=== PATIENT | female | born 1945 | race Two or more races ===

== ENCOUNTER 2019-11-25 07:43 | Emergency (ER) | payer MEDICARE ==
[~2019-11-25] VITALS: Ht 160 cm; Wt 68.0 kg
[2019-11-25 08:01] VITALS: BP 120/51
== END 2019-11-25 09:01 | disposition home or self-care (01) ==
LOC: ER 07:43
DX: D17.1 Benign lipomatous neoplasm of skin and subcutaneous tissue of trunk (principal); M54.6 Pain in thoracic spine; I10 Essential (primary) hypertension; Z86.73 Personal history of transient ischemic attack (TIA), and cerebral infarction without residual deficits; Z95.1 Presence of aortocoronary bypass graft; Z88.1 Allergy status to other antibiotic agents

== ENCOUNTER 2019-12-04 08:31 | Emergency (ER) | payer MEDICARE ==
[~2019-12-04] VITALS: Ht 160 cm; Wt 65.8 kg
[2019-12-04 08:40] VITALS: BP 114/83
[2019-12-04] MEDS ORDERED: LIDOCAINE 1% HCL (LOCAL ANESTH.) INJ 20ML MDV IJ ONE (09:15)
== END 2019-12-04 09:33 | disposition home or self-care (01) ==
LOC: ER 08:31
DX: L02.212 Cutaneous abscess of back [any part, except buttock and flank] (principal); L72.0 Epidermal cyst; I10 Essential (primary) hypertension; Z88.1 Allergy status to other antibiotic agents; Z88.8 Allergy status to other drugs, medicaments and biological substances; Z86.73 Personal history of transient ischemic attack (TIA), and cerebral infarction without residual deficits; Z95.1 Presence of aortocoronary bypass graft
CPT/HCPCS: 10060; 99283; J2001

== ENCOUNTER 2019-12-07 08:05 | Emergency (ER) | payer MEDICARE ==
[~2019-12-07] VITALS: Ht 160 cm; Wt 63.5 kg
[2019-12-07 08:17] VITALS: BP 108/59
== END 2019-12-07 10:07 | disposition home or self-care (01) ==
LOC: ER 08:05
DX: Z48.01 Encounter for change or removal of surgical wound dressing (principal)

== ENCOUNTER 2020-09-20 12:21 | Emergency (ER) | payer MEDICARE ==
[~2020-09-20] VITALS: Ht 160 cm; Wt 65.8 kg
[2020-09-20 12:31] VITALS: BP 125/35
[2020-09-20] MEDS ORDERED: METHOCARBAMOL 500 MG TAB PO ONE (14:15)
[2020-09-20] MEDS ORDERED: ACETAMINOPHEN 500 MG TAB PO ONE (14:15)
== END 2020-09-20 14:40 | disposition home or self-care (01) ==
LOC: ER 12:21
DX: M54.31 Sciatica, right side (principal); I10 Essential (primary) hypertension; E78.5 Hyperlipidemia, unspecified; Z88.2 Allergy status to sulfonamides; Z88.1 Allergy status to other antibiotic agents; Z95.1 Presence of aortocoronary bypass graft
CPT/HCPCS: 72100

== ENCOUNTER 2020-12-17 10:53 | Inpatient (IN) | payer MEDICARE ==
[~2020-12-17] VITALS: Ht 160 cm; Wt 69.3 kg
[2020-12-17 14:08] LABS: Basophils # (auto) 0 10 ^3/uL (0-0.2); Basophils % (auto) 0.5 % (0.0-2.0); Eosinophils # (auto) 0.3 10 ^3/uL (0-0.8); Hematocrit 38.9 % (36.0-46.0); Hemoglobin 13.3 g/dL (12.2-16.2); Lymphocytes # (auto) 2.4 10 ^3/uL (0.4-5.4); Mean Corpuscular Hemoglobin 31.2 pg (28.0-32.0); Mean Corpuscular Hgb Conc. 34.1 g/dL (32.0-36.0); Mean Corpuscular Volume 91.4 fL (80.0-100.0); Monocytes # (auto) 0.4 10 ^3/uL (0-1.3); Monocytes % (auto) 6.3 % (0.0-12.0); Neutrophils # (auto) 3.6 10 ^3/uL (1.6-8.6); Neutrophils % (auto) 53.2 % (37.0-80.0); Nucleated Red Blood Cells % 0.1 %; Platelet Count (auto) 191 10^3/uL (140-450); Red Blood Cells 4.25 10^6/uL (4.0-5.20); Red Cell Distribution Width 14.1 % (11.8-14.3); White Blood Cell 6.8 10^3/uL (4.4-10.8)
[2020-12-17 14:30] LABS: INR 1.03 (0.9-1.15); Partial Thromboplastin Time 24.8 sec (23.0-31.2)
[2020-12-17 14:32] LABS: Albumin 3.6 g/dL (3.4-5.0); BUN/Creatinine Ratio 13.5; Calcium 8.9 mg/dL (8.5-10.1); Potassium 4.1 mmol/L (3.5-5.1)
[2020-12-17 14:35] LABS: Bilirubin, Total 0.7 mg/dL (0.2-1.0); Total Protein 6.7 g/dL (6.4-8.2)
[2020-12-17] MEDS ORDERED: ONDANSETRON HCL 4 MG/2 ML VIAL IV PRN (17:30)
[2020-12-17] MEDS ORDERED: MORPHINE SULF INJ 2 MG/ML SYRINGE 1ML IV PRN ×2 (17:30)
[2020-12-17] MEDS ORDERED: ACETAMINOPHEN 500 MG TAB PO PRN (17:30)
[2020-12-17] MEDS ORDERED: NITROGLYCERIN 0.4 MG SL TAB SL PRN (17:30)
[2020-12-17] MEDS ORDERED: hydrOXYzine 25 MG TAB or CAP PO PRN (18:15)
[2020-12-17] MEDS: HYDROcodone-ACET 5/325MG TAB PO PRN (18:43)
[2020-12-17] MEDS ORDERED: LORazepam 2MG/ML-1ML VIAL IV PRN (19:45)
[2020-12-17] MEDS: CARVEDILOL 12.5 MG TAB PO SCH (21:09)
[2020-12-17] MEDS: FLUTICASONE PROP NASAL SPR 0.05 % (50MCG) 16GM EACHNOSTRI SCH (21:09)
[2020-12-17] MEDS: levETIRAcetam 500 MG TAB PO SCH (21:10)
[2020-12-17] MEDS: ATORVASTATIN 20 MG TAB PO SCH (21:10)
[2020-12-17] MEDS: LOSARTAN POTASSIUM 50 MG TAB PO SCH (21:10)
[2020-12-18] MEDS: HYDROcodone-ACET 5/325MG TAB PO PRN ×3 (00:42→20:07)
[2020-12-18 04:35] VITALS: BP 94/56
[2020-12-18 05:00] VITALS: BP 94/56
[2020-12-18] MEDS ORDERED: FURO20TA3 PO (06:49)
[2020-12-18] MEDS ORDERED: CARV12.544 PO (06:49)
[2020-12-18] MEDS ORDERED: OXYB10TA14 PO (06:49)
[2020-12-18] MEDS ORDERED: LEVO25TA6 PO (06:49)
[2020-12-18] MEDS ORDERED: LOSA-69 PO (06:49)
[2020-12-18] MEDS ORDERED: KEP500T PO (06:49)
[2020-12-18] MEDS ORDERED: HYDR-3682 PO (06:49)
[2020-12-18] MEDS ORDERED: SPIR25TA8 PO (06:49)
[2020-12-18] MEDS ORDERED: ATOR40TA52 PO (06:49)
[2020-12-18] MEDS ORDERED: PRAS5TAB PO (06:49)
[2020-12-18] MEDS ORDERED: PROB1CAP51 PO (07:00)
[2020-12-18] MEDS: LEVOTHYROXINE SODIUM 25 MCG TAB PO SCH (07:09)
[2020-12-18 09:00] VITALS: BP 96/56
[2020-12-18] MEDS: FUROSEMIDE 20 MG TAB PO SCH (10:00)
[2020-12-18] MEDS: LOSARTAN POTASSIUM 50 MG TAB PO SCH (10:00)
[2020-12-18] MEDS: CARVEDILOL 12.5 MG TAB PO SCH ×2 (10:00→22:23)
[2020-12-18] MEDS: FLUTICASONE PROP NASAL SPR 0.05 % (50MCG) 16GM EACHNOSTRI SCH ×2 (10:35→22:00)
[2020-12-18] MEDS: FLORASTOR (S. BOULARDII) 250 MG CAP PO SCH (10:36)
[2020-12-18] MEDS: levETIRAcetam 500 MG TAB PO SCH ×2 (10:36→22:23)
[2020-12-18] MEDS: PRASUGREL HCL 10 MG TAB PO SCH (10:36)
[2020-12-18] MEDS: OXYBUTYNIN CHL 5 MG TAB PO SCH (10:36)
[2020-12-18] MEDS: FAMOTIDINE 20 MG TAB PO SCH (10:37)
[2020-12-18 13:00] VITALS: BP 117/70
[2020-12-18 16:55] LABS: Urine Bacteria FEW /hpf (None Seen); Urine Blood Negative /uL (Negative); Urine Specific Gravity 1.004 (1.001-1.035); Urine WBC 1 /hpf (0 - 5)
[2020-12-18 17:00] VITALS: BP 92/46
[2020-12-18 22:00] VITALS: BP 123/67
[2020-12-18] MEDS: ATORVASTATIN 20 MG TAB PO SCH (22:23)
[2020-12-19 05:00] VITALS: BP 95/55
[2020-12-19] MEDS: LEVOTHYROXINE SODIUM 25 MCG TAB PO SCH (06:58)
[2020-12-19 09:00] VITALS: BP 111/38
[2020-12-19] MEDS: CARVEDILOL 12.5 MG TAB PO SCH (09:51)
[2020-12-19] MEDS: LOSARTAN POTASSIUM 50 MG TAB PO SCH (09:51)
[2020-12-19] MEDS: FAMOTIDINE 20 MG TAB PO SCH (09:52)
[2020-12-19] MEDS: levETIRAcetam 500 MG TAB PO SCH (09:52)
[2020-12-19] MEDS: PRASUGREL HCL 10 MG TAB PO SCH (09:52)
[2020-12-19] MEDS: OXYBUTYNIN CHL 5 MG TAB PO SCH (09:52)
[2020-12-19] MEDS: FLORASTOR (S. BOULARDII) 250 MG CAP PO SCH (09:52)
[2020-12-19] MEDS: FUROSEMIDE 20 MG TAB PO SCH (09:52)
[2020-12-19] MEDS: FLUTICASONE PROP NASAL SPR 0.05 % (50MCG) 16GM EACHNOSTRI SCH (10:00)
[2020-12-19] MEDS ORDERED: SPIRONOLACTONE 25 MG TAB PO SCH (10:00)
[2020-12-19] MEDS: HYDROcodone-ACET 5/325MG TAB PO PRN (12:18)
[2020-12-19 13:00] VITALS: BP 119/77
[2020-12-19 19:25] VITALS: BP 113/75
== END 2020-12-19 20:33 | disposition home or self-care (01) | DRG 103 ==
LOC: ER 10:53 → TELE 17:20 → TELE-EAST 12-18 03:50
PROVIDERS: ADMIT Nurse Practitioner Acute Care; ATTEND Internal Medicine
DX: F07.81 Postconcussional syndrome (principal); I50.22 Chronic systolic (congestive) heart failure; G40.909 Epilepsy, unspecified, not intractable, without status epilepticus; I48.91 Unspecified atrial fibrillation; I11.0 Hypertensive heart disease with heart failure; I25.10 Atherosclerotic heart disease of native coronary artery without angina pectoris; M47.812 Spondylosis without myelopathy or radiculopathy, cervical region; R55 Syncope and collapse; W01.0XXA Fall on same level from slipping, tripping and stumbling without subsequent striking against object, initial encounter; Z20.822 Contact with and (suspected) exposure to COVID-19; M50.30 Other cervical disc degeneration, unspecified cervical region; F17.200 Nicotine dependence, unspecified, uncomplicated; M48.02 Spinal stenosis, cervical region; Z79.899 Other long term (current) drug therapy; Z82.49 Family history of ischemic heart disease and other diseases of the circulatory system; Z86.73 Personal history of transient ischemic attack (TIA), and cerebral infarction without residual deficits; Z83.3 Family history of diabetes mellitus; Z90.710 Acquired absence of both cervix and uterus; Z95.5 Presence of coronary angioplasty implant and graft; Z95.810 Presence of automatic (implantable) cardiac defibrillator; Y93.89 Activity, other specified; Y92.89 Other specified places as the place of occurrence of the external cause; Y99.8 Other external cause status; Z88.2 Allergy status to sulfonamides; Z88.1 Allergy status to other antibiotic agents; Z88.8 Allergy status to other drugs, medicaments and biological substances; G44.311 Acute post-traumatic headache, intractable
CPT/HCPCS: 36415; 70450; 71045; 72125; 80053; 81001; 83735; 84443; 84484; 85025; 85610; 85730; 87426; 97163; G0378

== ENCOUNTER 2021-03-26 11:16 | Inpatient (IN) | payer MEDICARE ==
[~2021-03-26] VITALS: Ht 157.5 cm; Wt 70.0 kg
[~2021-03-26 11:16] MED LIST: ATOR40TA52 PO; CARV12.544 PO; FURO20TA3 PO; HYDR-3682 PO; KEP500T PO; LEVO25TA6 PO; LOSA-69 PO; OXYB10TA14 PO; PRAS5TAB PO; PROB1CAP51 PO; SPIR25TA8 PO
[2021-03-26 12:24] LABS: Urine Bacteria FEW /hpf (None Seen); Urine Blood Negative /uL (Negative); Urine Hyaline Cast FEW /lpf (0 - 2); Urine Mucus FEW (None Seen); Urine Specific Gravity 1.025 (1.001-1.035); Urine WBC 2 /hpf (0 - 5)
[2021-03-26 12:43] LABS: Basophils # (auto) 0.1 10 ^3/uL (0-0.2); Basophils % (auto) 1.4 % (0.0-2.0); Eosinophils # (auto) 0.3 10 ^3/uL (0-0.8); Eosinophils % (auto) 3.8 % (0.0-7.0); Hematocrit 39.4 % (36.0-46.0); Hemoglobin 13.3 g/dL (12.2-16.2); Lymphocytes # (auto) 2.4 10 ^3/uL (0.4-5.4); Lymphocytes % (auto) 30.4 % (10.0-50.0); Mean Corpuscular Hemoglobin 30.5 pg (28.0-32.0); Mean Corpuscular Hgb Conc. 33.8 g/dL (32.0-36.0); Mean Corpuscular Volume 90.3 fL (80.0-100.0); Monocytes # (auto) 0.4 10 ^3/uL (0-1.3); Monocytes % (auto) 5.5 % (0.0-12.0); Neutrophils # (auto) 4.7 10 ^3/uL (1.6-8.6); Neutrophils % (auto) 58.9 % (37.0-80.0); Nucleated Red Blood Cells % 0.1 %; Platelet Count (auto) 231 10^3/uL (140-450); Red Blood Cells 4.37 10^6/uL (4.0-5.20); Red Cell Distribution Width 13.8 % (11.8-14.3)
[2021-03-26 13:06] LABS: Potassium 4.4 mmol/L (3.5-5.1)
[2021-03-26] MEDS ORDERED: LEVE500T3 PO (13:22)
[2021-03-26] MEDS ORDERED: FLUT50SP NAS (13:22)
[2021-03-26] MEDS ORDERED: FUR20T PO (13:22)
[2021-03-26] MEDS ORDERED: LEV25T PO (13:22)
[2021-03-26 13:36] LABS: Albumin 3.7 g/dL (3.4-5.0); BUN/Creatinine Ratio 15.5; Bilirubin, Total 0.7 mg/dL (0.2-1.0); Calcium 8.9 mg/dL (8.5-10.1); Total Protein 6.8 g/dL (6.4-8.2)
[2021-03-26] MEDS ORDERED: ACETAMINOPHEN 500 MG TAB PO PRN (14:15)
[2021-03-26] MEDS ORDERED: CARISOPRODOL 350 MG TAB PO PRN (14:15)
[2021-03-26] MEDS ORDERED: NITROGLYCERIN 0.4 MG SL TAB SL PRN (14:15)
[2021-03-26] MEDS ORDERED: ONDANSETRON HCL 4 MG/2 ML VIAL IV PRN (14:15)
[2021-03-26] MEDS ORDERED: MORPHINE SULF INJ 2 MG/ML SYRINGE 1ML IV PRN (14:15)
[2021-03-26] MEDS: HYDROcodone-ACET 5/325MG TAB PO PRN ×2 (15:09→21:44)
[2021-03-26] MEDS: CARVEDILOL 12.5 MG TAB PO SCH (18:21)
[2021-03-26 20:10] VITALS: BP 109/50
[2021-03-26] MEDS: LOSARTAN POTASSIUM 50 MG TAB PO SCH (21:28)
[2021-03-26] MEDS: levETIRAcetam 500 MG TAB PO SCH (21:29)
[2021-03-26] MEDS: ATORVASTATIN 20 MG TAB PO SCH (21:30)
[2021-03-26 22:00] VITALS: BP 109/50
[2021-03-27] MEDS: MORPHINE SULF INJ 2 MG/ML SYRINGE 1ML IV PRN (00:08)
[2021-03-27 04:33] VITALS: BP 94/45
[2021-03-27] MEDS: HYDROcodone-ACET 5/325MG TAB PO PRN ×3 (05:13→20:51)
[2021-03-27] MEDS: LEVOTHYROXINE SODIUM 25 MCG TAB PO SCH (06:46)
[2021-03-27] MEDS: CARVEDILOL 12.5 MG TAB PO SCH (08:00)
[2021-03-27 09:18] VITALS: BP 106/60
[2021-03-27] MEDS: levETIRAcetam 500 MG TAB PO SCH ×2 (09:28→21:14)
[2021-03-27] MEDS: PRASUGREL HCL 10 MG TAB PO SCH (09:29)
[2021-03-27] MEDS: FLUTICASONE PROP NASAL SPR 0.05 % (50MCG) 16GM SCH (09:59)
[2021-03-27] MEDS ORDERED: SPIRONOLACTONE 25 MG TAB PO SCH (10:00)
[2021-03-27] MEDS ORDERED: FUROSEMIDE 20 MG TAB PO SCH (10:00)
[2021-03-27 12:51] VITALS: BP 103/60
[2021-03-27 15:15] LABS: Free T3 2.93 pg/mL (2.3-4.2); Free T4 (Free Thyroxine) 1.01 ng/dL (0.89-1.76)
[2021-03-27 15:28] LABS: INR 1.09 (0.9-1.15); Partial Thromboplastin Time 21.9 sec (23.0-31.2)
[2021-03-27] MEDS ORDERED: GABAPENTIN 300 MG CAP PO ONE (16:00)
[2021-03-27 16:48] VITALS: BP 108/64
[2021-03-27] MEDS: GABAPENTIN 300 MG CAP PO SCH (21:14)
[2021-03-27] MEDS: ATORVASTATIN 20 MG TAB PO SCH (21:14)
[2021-03-27 22:00] VITALS: BP 104/57
[2021-03-28 05:00] VITALS: BP 102/43
[2021-03-28] MEDS: GABAPENTIN 300 MG CAP PO SCH ×2 (06:05→14:30)
[2021-03-28] MEDS: LEVOTHYROXINE SODIUM 25 MCG TAB PO SCH (06:05)
[2021-03-28] MEDS: MORPHINE SULF INJ 2 MG/ML SYRINGE 1ML IV PRN (08:15)
[2021-03-28 09:00] VITALS: BP 116/55
[2021-03-28] MEDS: PRASUGREL HCL 10 MG TAB PO SCH (09:57)
[2021-03-28] MEDS: FLUTICASONE PROP NASAL SPR 0.05 % (50MCG) 16GM SCH (09:57)
[2021-03-28] MEDS: levETIRAcetam 500 MG TAB PO SCH (09:58)
[2021-03-28 13:00] VITALS: BP 116/66
[2021-03-28] MEDS: HYDROcodone-ACET 5/325MG TAB PO PRN (14:00)
[2021-03-28] MEDS ORDERED: GABA300C10 PO (14:24)
[2021-03-28 14:59] VITALS: BP 109/60
== END 2021-03-28 16:34 | disposition home or self-care (01) | DRG 313 ==
LOC: ER 11:16 → TELE 14:10 → TELE-CENTR 20:10
PROVIDERS: ADMIT Nurse Practitioner Acute Care; ATTEND Internal Medicine
DX: R07.89 Other chest pain (principal); I31.3 Pericardial effusion (noninflammatory); I50.22 Chronic systolic (congestive) heart failure; I25.5 Ischemic cardiomyopathy; E03.9 Hypothyroidism, unspecified; G40.909 Epilepsy, unspecified, not intractable, without status epilepticus; I25.10 Atherosclerotic heart disease of native coronary artery without angina pectoris; E78.5 Hyperlipidemia, unspecified; I48.0 Paroxysmal atrial fibrillation; I11.0 Hypertensive heart disease with heart failure; Z20.822 Contact with and (suspected) exposure to COVID-19; Z82.49 Family history of ischemic heart disease and other diseases of the circulatory system; Z86.73 Personal history of transient ischemic attack (TIA), and cerebral infarction without residual deficits; Z95.810 Presence of automatic (implantable) cardiac defibrillator; Z98.61 Coronary angioplasty status; Z90.49 Acquired absence of other specified parts of digestive tract
CPT/HCPCS: 36415; 71045; 74176; 80053; 81001; 83735; 83880; 84439; 84443; 84481; 84484; 85025; 85379; 85610; 85652; 85730; 87426; 93005; 93306; G0378

== ENCOUNTER 2022-04-10 09:29 | Emergency (ER) | payer MEDICARE ==
[~2022-04-10] VITALS: Ht 160 cm; Wt 70.8 kg
[~2022-04-10 09:29] MED LIST changes: -CARV12.544 PO; +FLUT50SP NAS; -FURO20TA3 PO; +GABA300C10 PO; +LEV25T PO; +LEVE500T3 PO; -LOSA-69 PO; -SPIR25TA8 PO
[2022-04-10 10:46] LABS: Basophils # (auto) 0 10 ^3/uL (0-0.2); Basophils % (auto) 0.8 % (0.0-2.0); Eosinophils # (auto) 0 10 ^3/uL (0-0.8); Eosinophils % (auto) 0.3 % (0.0-7.0); Hematocrit 38.3 % (36.0-46.0); Hemoglobin 13.3 g/dL (12.2-16.2); Lymphocytes # (auto) 1.4 10 ^3/uL (0.4-5.4); Lymphocytes % (auto) 24.3 % (10.0-50.0); Mean Corpuscular Hemoglobin 31.5 pg (28.0-32.0); Mean Corpuscular Hgb Conc. 34.6 g/dL (32.0-36.0); Monocytes # (auto) 0.6 10 ^3/uL (0-1.3); Monocytes % (auto) 10.2 % (0.0-12.0); Neutrophils # (auto) 3.6 10 ^3/uL (1.6-8.6); Neutrophils % (auto) 64.4 % (37.0-80.0); Nucleated Red Blood Cells % 0.1 %; Red Blood Cells 4.21 10^6/uL (4.0-5.20); Red Cell Distribution Width 14.1 % (11.8-14.3); White Blood Cell 5.6 10^3/uL (4.4-10.8)
[2022-04-10 11:02] LABS: Albumin 3.7 g/dL (3.4-5.0); Calcium 8.7 mg/dL (8.5-10.1); Magnesium 2.5 mg/dL (1.6-2.6); Potassium 3.5 mmol/L (3.5-5.1)
[2022-04-10 11:05] LABS: BUN/Creatinine Ratio 12.3; Bilirubin, Total 0.7 mg/dL (0.2-1.0)
[2022-04-10] MEDS ORDERED: IBUPROFEN 600 MG TAB PO ONE ×2 (12:49→13:00)
[2022-04-10] MEDS ORDERED: METH500T22 PO (13:08)
[2022-04-10] MEDS ORDERED: DEX4T PO (13:08)
[2022-04-10 13:10] LABS: Urine Bacteria FEW /hpf (None Seen); Urine Blood Negative /uL (Negative); Urine Specific Gravity 1.024 (1.001-1.035); Urine WBC 2 /hpf (0 - 5)
[2022-04-10] MEDS ORDERED: DexAMETHasone SOD PHOS 10MG/1ML VIAL INJ IV ONE (13:15)
[2022-04-10 13:28] VITALS: BP 101/53
[2022-04-10] MEDS ORDERED: DexAMETHasone SOD PHOS 10MG/1ML VIAL INJ IM ONE (13:30)
== END 2022-04-10 13:35 | disposition home or self-care (01) ==
LOC: ER 09:29
DX: M54.12 Radiculopathy, cervical region (principal); M47.812 Spondylosis without myelopathy or radiculopathy, cervical region; R42 Dizziness and giddiness; E11.21 Type 2 diabetes mellitus with diabetic nephropathy; I11.0 Hypertensive heart disease with heart failure; I50.9 Heart failure, unspecified; E78.5 Hyperlipidemia, unspecified; Z98.61 Coronary angioplasty status; Z86.73 Personal history of transient ischemic attack (TIA), and cerebral infarction without residual deficits
CPT/HCPCS: 36415; 71045; 72125; 80053; 81001; 83735; 84443; 84484; 85025; 93005; 96372; 99285; J1100

== ENCOUNTER 2022-09-06 10:20 | Emergency (ER) | payer MEDICARE ==
[~2022-09-06] VITALS: Ht 160 cm; Wt 66.0 kg
[~2022-09-06 10:20] MED LIST changes: +DEX4T PO; +METH500T22 PO
[2022-09-06 10:59] VITALS: BP 114/60
[2022-09-06] MEDS ORDERED: methylPREDNISolone SOD SUCC 125 MG/2 ML VL IM ONE (11:00)
[2022-09-06] MEDS ORDERED: ACET-1080 PO (12:24)
[2022-09-06] MEDS ORDERED: PRED20TA2 PO (12:24)
== END 2022-09-06 12:27 | disposition home or self-care (01) ==
LOC: ER 10:20
DX: M51.37 Other intervertebral disc degeneration, lumbosacral region (principal); M54.16 Radiculopathy, lumbar region; I11.0 Hypertensive heart disease with heart failure; I50.9 Heart failure, unspecified; E78.5 Hyperlipidemia, unspecified; E03.9 Hypothyroidism, unspecified; Z86.73 Personal history of transient ischemic attack (TIA), and cerebral infarction without residual deficits; Z95.1 Presence of aortocoronary bypass graft; Z95.0 Presence of cardiac pacemaker; Z79.899 Other long term (current) drug therapy; Z88.1 Allergy status to other antibiotic agents; Z88.2 Allergy status to sulfonamides; Z88.8 Allergy status to other drugs, medicaments and biological substances
CPT/HCPCS: 93971; 96372; 99284; J2930

== ENCOUNTER 2022-12-14 03:08 | Emergency (ER) | payer MEDICARE ==
[~2022-12-14] VITALS: Ht 160 cm; Wt 65.1 kg
[~2022-12-14 03:08] MED LIST changes: +ACET-1080 PO; +PRED20TA2 PO
[2022-12-14 06:49] VITALS: BP 123/69
[2022-12-14] MEDS ORDERED: HYDROcodone-ACET 5/325MG TAB PO ONE (07:00)
[2022-12-14] MEDS ORDERED: methylPREDNISolone SOD SUCC 125 MG/2 ML VL IM ONE (07:00)
[2022-12-14] MEDS ORDERED: PRED20TA2 PO ×2 (07:25→07:39)
[2022-12-14] MEDS ORDERED: ACET-1080 PO ×3 (07:25→07:39)
== END 2022-12-14 07:33 | disposition home or self-care (01) ==
LOC: ER 03:08
DX: M54.50 Low back pain, unspecified (principal); M54.16 Radiculopathy, lumbar region; E78.5 Hyperlipidemia, unspecified; I11.0 Hypertensive heart disease with heart failure; I50.9 Heart failure, unspecified; Z86.73 Personal history of transient ischemic attack (TIA), and cerebral infarction without residual deficits; Z98.890 Other specified postprocedural states; Z79.899 Other long term (current) drug therapy; Z88.2 Allergy status to sulfonamides; Z88.8 Allergy status to other drugs, medicaments and biological substances
CPT/HCPCS: 96372; 99283; J2930

== ENCOUNTER 2024-06-25 10:52 | Emergency (ER) | payer MEDICARE ==
[~2024-06-25] VITALS: Ht 160 cm; Wt 70.5 kg
[~2024-06-25 10:52] MED LIST changes: +GABA-1250 PO; -GABA300C10 PO; +METH-1181 PO; -METH500T22 PO
[2024-06-25] MEDS: HYDROcodone-ACET 5/325MG TAB PO ONE (12:22)
[2024-06-25 12:26] VITALS: BP 137/75; PULSE 66; RESP 18; TEMP 98.1; O2SAT 95
[2024-06-25] MEDS: methylPREDNISolone SOD SUCC 125 MG/2 ML VL IM ONE (12:51)
[2024-06-25] MEDS ORDERED: METH-1182 PO (13:05)
== END 2024-06-25 13:07 | disposition home or self-care (01) ==
LOC: ER 10:52
DX: M51.16 Intervertebral disc disorders with radiculopathy, lumbar region (principal); I82.402 Acute embolism and thrombosis of unspecified deep veins of left lower extremity; I11.0 Hypertensive heart disease with heart failure; I50.9 Heart failure, unspecified; E78.5 Hyperlipidemia, unspecified; Z88.2 Allergy status to sulfonamides; Z88.1 Allergy status to other antibiotic agents; Z86.73 Personal history of transient ischemic attack (TIA), and cerebral infarction without residual deficits
CPT/HCPCS: 93971; 96372; 99285; J2919

== ENCOUNTER 2025-02-24 06:20 | Emergency (ER) | payer MEDICARE ==
[~2025-02-24] VITALS: Ht 160 cm; Wt 68.9 kg
[~2025-02-24 06:20] MED LIST changes: +METH-1182 PO
[2025-02-24 06:30] VITALS: BP 145/82; PULSE 99; RESP 13; TEMP 99.8; O2SAT 95
--- NOTE | 2025-02-24 07:24 | ED.PDOC ---
History of Present Illness HPI Comments 80 y/o F, with PMHx of CHF, CVA, HLD, HTN, Seizures, and TIA presents to the ED for CC of diarrhea. Patient states, that she has been experiencing symptoms of dizziness with associated blurred vision and diarrhea x2-3days. Patient relays, that she was previously hospitalized for similar symptoms [id number] ago. Patient comments, on having [id number] of loose diarrhea daily since, start of symptoms. No other associated symptoms, modifiers, recent injuries or sick contacts present at this time. Chief Complaint: Diarrhea Time Seen by MD: 07:13 Primary Care Provider: ANDI Reviewed Notes: Nurses Notes, Medications, Allergies Allergies: Coded Allergies: Cefaclor (Verified Allergy, Unknown, 11/25/19) Sulfate (Verified Allergy, Unknown, 11/25/19) Tetracycline (Verified Allergy, Unknown, 11/25/19) Home Meds Active Scripts Methocarbamol (Methocarbamol) 750 Mg Tab, 750 MG PO BID, #20 TAB Prov:PHUC PALACIOS 06/25/24 Acetaminophen (Tylenol 8 Hour Arthritis) 650 Mg Tab, 650 MG PO TID, #30 TAB Prov:PHUC PALACIOS 12/14/22 Prednisone (Prednisone) 20 Mg Tab, 40 MG PO DAILY, #20 MG Prov:PHUC PALACIOS 12/14/22 Prednisone (Prednisone) 20 Mg Tab, 40 MG PO DAILY, #20 MG Prov:PHUC PALACIOS 12/14/22 Acetaminophen (Tylenol 8 Hour Arthritis) 650 Mg Tab, 650 MG PO TID, #30 TAB Prov:PHUC PALACIOS 09/06/22 Methocarbamol (Methocarbamol) 500 Mg Tab, 500 MG PO TID for 5 Days, #15 TAB Prov:WAN SAUCEDA MD 04/10/22 Dexamethasone (Decadron) 4 Mg Tb, 1 TAB PO BID for 5 Days, #10 TAB Prov:WAN SAUCEDA MD 04/10/22 Gabapentin (Gabapentin) 300 Mg Cap, 300 MG PO TID for 10 Days, #30 CAP Prov:CRUZ RICH MD 03/28/21 Reported Medications Fluticasone Propionate (Nasal) (Fluticasone Propionate) 50 Mcg/Act Spr, SPRAY AGUSTO 03/26/21 Levothyroxine Sodium (Levothyroxine Sodium) 25 Mcg Tab, 1 TAB PO DAILYPRN 03/26/21 Levetiracetam (Levetiracetam) 500 Mg Tab, 1 TAB PO BID 03/26/21 Probiotic Product (Align Extra Strength) 1 Cap Cap, 1 CAP PO DAILY, CAP 12/18/20 Prasugrel HCl (Prasugrel) 5 Mg Tab, 5 MG PO DAILY, TAB 12/18/20 Oxybutynin Chloride (Ditropan Xl) 10 Mg Tab, 10 MG PO DAILY, TAB 12/18/20 Levothyroxine Sodium (Levothyroxine Sodium) 25 Mcg Tab, 25 MCG PO QAM, MCG 12/18/20 Levetiracetam (KEPPRA TABLET) 500 Mg Tb, 500 MG PO BID, TAB 12/18/20 Hydroxyzine Hcl (Hydroxyzine Hcl) 25 Mg Tab, 25 MG PO PRN for 30 Days, MG 12/18/20 Atorvastatin Calcium (ATORVASTATIN CALCIUM) 40 Mg Tab, 1 TAB PO DAILY, #30 TAB 5 Refills 12/18/20 Information Source: Patient Mode of Arrival: Ambulatory Severity: Moderate Timing: Days Duration: Since onset Prehospital treatment: None Past Medical History PAST MEDICAL HISTORY: CHF, CVA, High Lipids, HTN, Seizures, Thyroid, TIA Surgical History: CABG, Pacemaker [employer]INE[employer] History: Denies all [employer]ER Hx Family History Family History: Reviewed,noncontributory to illness, Family hx of HTN Social History Smoker: Non-Smoker Alcohol: Rarely Drugs: Denies Drug Use Lives In: Home Constitutional: denies: chills, diaphoresis, fatigue, fever, malaise, sweats, weakness, others EENTM: reports: blurred vision; denies: double vision, ear bleeding, ear discharge, ear drainage, ear pain, ear ringing, eye pain, eye redness, hearing loss, mouth pain, mouth swelling, nasal discharge, nose bleeding, nose congestio n, nose pain, photophobia, tearing, throat pain, throat swelling, voice changes, others Respiratory: denies: cough, hemoptysis, orthopnea, SOB at rest, shortness of breath, SOB with excertion, stridor, wheezing, others Cardiovascular: denies: chest pain, dizzy spells, diaphoresis, Dyspnea on exertion, edema, irregular heart beat, left arm pain, lightheadedness, palpitations, PND, syncope, others Gastrointestinal: reports: diarrhea; denies: abdomen distended, abdominal pain, blood streaked bowels, constipated, dysphagia, difficulty swallowing, angelica temesis, melena, nausea, poor appetite, poor fluid intake, rectal bleeding, rectal pain, vomiting, others Genitourinary: denies: abnormal vagina bleeding, burning, dyspareunia, dysuria, flank pain, frequency, hematuria, incontinence, pain, , vagina discharge, urgency, others Neurological: reports: dizziness; denies: fainting, headache, left sided numbness, left sided weakness, numbness, paresthesia, pre-existing deficit, right sided numbness, right sided weakness, seizure, speech problems, tingling, tremors, weakness, others Musculoskeletal: denies: back pain, gout, joint pain, joint swelling, muscle pain, muscle stiffness, neck pain, others Integumetry: denies: bruises, change in color, change in hair/nails, dryness, laceration, lesions, lumps, rash, wounds, others Allergic/Immunocompromised: denies: Difficulty Healing, Frequent Infections, Hives, Itching, others Hematologic/Lymphatic: denies: anemia, blood clots, easy bleeding, easy bruising, swollen glands, others Endocrine: denies: excessive hunger, excessive sweating, excessive thirst, excessive urination, flushing, intolerance to cold, intolerance to heat, unexplained weight gain, unexplained weight loss, others Psychiatric: denies: anxiety, bipolar disorder, depression, hopeless, panic disorder, schizophrenia, sleepless, suicidal, others All Other Systems: Reviewed and Negative Physical Exam General Appearance: No Apparent Distress, Normal HEENT: Normal ENT Inspection, Pharynx Normal Neck: Full Range of Motion, Non-Tender, Normal, Normal Inspection Respiratory: Chest Non-Tender, Lungs Clear, No Accessory Muscle Use, No Respiratory Distress, Normal Breath Sounds Cardiovascular: No Edema, No Murmur, No Gallop, Normal Peripheral Pulses, Regular Rate/Rhythm Breast Exam: Deferred Gastrointestinal: No Organomegaly, Non Tender, No Pulsatile Mass, Normal Bowel Sounds, Soft, Other (CHRONIC SYMPTOMS) Genitalia: Deferred Pelvic: Deferred Rectal: Deferred Extremities: No calf tenderness, Normal capillary refill, Normal inspection, Normal range of motion, Non-tender, No pedal edema Musculoskeletal : Apperance: Normal Neurologic: Alert, Normal Affect, Normal Mood, No Sensory Deficits Cerebellar Function: Normal Reflexes: Normal Skin: Dry, Normal Color, Warm Lymphatic: No Adenopathy Was a procedure done? Was a procedure done?: No Differential Dx Considerations may include: GASTRITIS, FOOD POISING, DEHYDRATION, HYPOGLYCEMIA, HYPOTENSION X-Ray, Labs, Meds, VS Vital Signs Date Time Temp Pulse Resp B/P (MAP) Pulse Ox O2 Delivery O2 Flow Rate FiO2 02/24/25 06:30 99.8 99 13 145/82 (103) 95 99.8 Lab Test 02/24/25 07:31 02/24/25 06:38 Range/Units White Blood Count 8.4 4.4-10.8 10^3/uL Red Blood Count 4.71 4.0-5.20 10^6/uL Hemoglobin 14.5 12.2-16.2 g/dL Hematocrit 43.3 36.0-46.0 % Mean Corpuscular Volume 91.9 80.0-100.0 fL Mean Corpuscular Hemoglobin 30.8 28.0-32.0 pg Mean Corpuscular Hemoglobin Concent 33.6 32.0-36.0 g/dL Red Cell Distribution Width 14.5 H 11.8-14.3 % Platelet Count 223 140-450 10^3/uL Mean Platelet Volume 8.3 6.9-10.8 fL Neutrophils (%) (Auto) 80.4 H 37.0-80.0 % Lymphocytes (%) (Auto) 9.7 L 10.0-50.0 % Monocytes (%) (Auto) 6.8 0.0-12.0 % Eosinophils (%) (Auto) 2.6 0.0-7.0 % Basophils (%) (Auto) 0.5 0.0-2.0 % Neutrophils # (Auto) 6.7 1.6-8.6 10 ^3/uL Lymphocytes # (Auto) 0.8 0.4-5.4 10 ^3/uL Monocytes # (Auto) 0.6 0-1.3 10 ^3/uL Eosinophils # (Auto) 0.2 0-0.8 10 ^3/uL Basophils # (Auto) 0 0-0.2 10 ^3/uL Nucleated Red Blood Cells 0.1 % Prothrombin Time 10.9 9.3-11.8 sec Prothrombin Time INR 1.03 0.9-1.15 Activated Partial Thromboplast Time 28.1 24.5-34.5 SEC D-Dimer, Quantitative < 0.19 0.0-0.49 mg/L FEU Sodium Level 140 136-145 mmol/L Potassium Level 4.4 3.5-5.1 mmol/L Chloride Level 107 98-107 mmol/L Carbon Dioxide Level 25 20-31 mmol/L Anion Gap 8 5-15 Blood Urea Nitrogen 10 9-23 mg/dL Creatinine 1.03 H 0.550-1.02 mg/dL Glomerular Filtration Rate Calc 56 >90 mL/min BUN/Creatinine Ratio 9.7 L 10.0-20.0 Serum Glucose 125 H 74-106 mg/dL Calcium Level 9.8 8.7-10.4 mg/dL Magnesium Level 1.9 1.6-2.6 mg/dL Total Bilirubin 0.6 0.2-1.0 mg/dL Aspartate Amino Transferase (AST) 26 13-40 U/L Alanine Aminotransferase (ALT) 31 7-40 U/L Alkaline Phosphatase 80 46-116 U/L Troponin I High Sensitivity 5 </=34 ng/L B-Type Natriuretic Peptide 405.68 0-100 pg/mL Total Protein 7.1 5.7-8.2 g/dL Albumin 4.7 3.2-4.8 g/dL POC Glucose 143 H 70-106 mg/dl [place] [id number] Ph: [phone] DIAGNOSTIC IMAGING Diagnostic Imaging Report : [id number] Signed PATIENT: ARNULFO HINES ACCT: [id number] UNIT: [id number] : 1945 LOC: ER ROOM / BED: / AGE / SEX: 80 / F ADM STATUS: REG ER SERVICE [id number] ORDERING PHYSICIAN: JAIME ANNA MD PROCEDURE(s): CXRP - CHEST PORTABLE REASON: shortness of breath ORDER NUMBER(s): [id number], ACCESSION NUMBER(s): [id number] EXAM: XY CHEST PORTABLE Indication: shortness of breath Technique: Single frontal view of the chest was obtained Comparison: CHEST XRAY 1 VIEW on DOS: 04/10/22, CXR1 on DOS: 04/10/22, CHEST PORTABLE on DOS: 03/26/21 FINDINGS: Lines and Tubes: Cardiac pacemaker projects over left chest wall. Lungs: No focal consolidation. Pleura: No effusion. No pneumothorax. Cardiomediastinal contours: Unremarkable Bones: No acute osseous abnormality. IMPRESSION: No acute cardiopulmonary disease. ATED BY: SAURABH BROWN MD DICTATED DATE/TIME: 02/24/25819 SIGNED BY: SAURABH BROWN MD SIGNED DATE/TIME: 02/24/25819 CC: X-Ray, Labs, Meds, VS Comment This 80-year-old female presents to the emergency room secondary to blacking out" spells. States she will ambulate and see black. She was episodes where she becomes weak. Workup here has benign. However, secondary to multiple risk factors including pacemaker placement, met her for further workup management for concern for syncope. Time of 1ST Reevaluation: 07:43 Reevaluation 1ST: Unchanged Patient Education/Counseling: Diagnosis, Treatment Family Education/Counseling: Diagnosis, Treatment Departure 1 Departure Time of Disposition: 09:52 Impression: Primary Impression: Dizziness Additional Impressions: Generalized weakness Syncope Disposition: ADMITTED INPATIENT Admit to: [facility] Condition: Guarded Critical Care Note Critical Care Time?: No Stability Stability form required: No Heart Score Heart Score: Heart Score Response (Comments) Value History N/A 0 EKG N/A 0 Age N/A 0 Risk Factors N/A 0 Troponin N/A 0 Total 0 I personally scribed for JAIME ANNA MD ([email or web address]) on 02/24/25 at 07:24. Electronically submitted by Shilpa Keating ([email or web address]). I personally scribed for JAIME ANNA MD ([email or web address]) on 02/24/25 at 08:49. Electronically submitted by Shilpa Keating ([email or web address]). JIAME ANNA MD Feb 24, 2025 07:24
[2025-02-24 08:05] LABS: Basophils # (auto) 0 10 ^3/uL (0-0.2); Basophils % (auto) 0.5 % (0.0-2.0); Eosinophils # (auto) 0.2 10 ^3/uL (0-0.8); Eosinophils % (auto) 2.6 % (0.0-7.0); Hematocrit 43.3 % (36.0-46.0); Hemoglobin 14.5 g/dL (12.2-16.2); Lymphocytes # (auto) 0.8 10 ^3/uL (0.4-5.4); Lymphocytes % (auto) 9.7 % (10.0-50.0); Mean Corpuscular Hemoglobin 30.8 pg (28.0-32.0); Mean Corpuscular Hgb Conc. 33.6 g/dL (32.0-36.0); Mean Corpuscular Volume 91.9 fL (80.0-100.0); Monocytes # (auto) 0.6 10 ^3/uL (0-1.3); Monocytes % (auto) 6.8 % (0.0-12.0); Neutrophils # (auto) 6.7 10 ^3/uL (1.6-8.6); Neutrophils % (auto) 80.4 % (37.0-80.0); Nucleated Red Blood Cells % 0.1 %; Platelet Count (auto) 223 10^3/uL (140-450); Red Blood Cells 4.71 10^6/uL (4.0-5.20); Red Cell Distribution Width 14.5 % (11.8-14.3); White Blood Cell 8.4 10^3/uL (4.4-10.8)
[2025-02-24 08:11] LABS: INR 1.03 (0.9-1.15); Partial Thromboplastin Time 28.1 SEC (24.5-34.5); Prothrombin Time 10.9 sec (9.3-11.8)
[2025-02-24 08:12] LABS: Alanine Aminotransferase 31 U/L (7-40); Albumin 4.7 g/dL (3.2-4.8); Alkaline Phosphatase 80 U/L (46-116); Anion Gap 8 (5-15); Aspartate Aminotransferase 26 U/L (13-40); BUN/Creatinine Ratio 9.7 (10.0-20.0); Bilirubin, Total 0.6 mg/dL (0.2-1.0); Blood Urea Nitrogen 10 mg/dL (9-23); Calcium 9.8 mg/dL (8.7-10.4); Carbon Dioxide 25 mmol/L (20-31); Magnesium 1.9 mg/dL (1.6-2.6); Potassium 4.4 mmol/L (3.5-5.1); Sodium 140 mmol/L (136-145); Total Protein 7.1 g/dL (5.7-8.2)
[2025-02-24 08:13] LABS: Chloride 107 mmol/L (98-107); Glucose 125 mg/dL (74-106)
--- NOTE | 2025-02-24 08:22 | DVH ---
EXAM: XY CHEST PORTABLE Indication: shortness of breath Technique: Single frontal view of the chest was obtained Comparison: CHEST XRAY 1 VIEW on DOS: 04/10/22, CXR1 on DOS: 04/10/22, CHEST PORTABLE on DOS: 03/26/21 FINDINGS: Lines and Tubes: Cardiac pacemaker projects over left chest wall. Lungs: No focal consolidation. Pleura: No effusion. No pneumothorax. Cardiomediastinal contours: Unremarkable Bones: No acute osseous abnormality. IMPRESSION: No acute cardiopulmonary disease.
== END 2025-02-24 10:20 | disposition left against medical advice (07) ==
LOC: ER 06:20
DX: R42 Dizziness and giddiness (principal); R53.1 Weakness; R55 Syncope and collapse; I11.0 Hypertensive heart disease with heart failure; I50.9 Heart failure, unspecified; E78.5 Hyperlipidemia, unspecified; Z86.73 Personal history of transient ischemic attack (TIA), and cerebral infarction without residual deficits; Z95.1 Presence of aortocoronary bypass graft; Z88.1 Allergy status to other antibiotic agents; Z79.899 Other long term (current) drug therapy; Z79.890 Hormone replacement therapy; Z79.52 Long term (current) use of systemic steroids; Z79.02 Long term (current) use of antithrombotics/antiplatelets
CPT/HCPCS: 36415; 71045; 80053; 82947; 82962; 83735; 83880; 84484; 85025; 85379; 85610; 85730